=== PATIENT | female | born 1985 | race Caucasian/White ===

== ENCOUNTER 2021-09-24 13:17 | Emergency (ER) | payer OTHER ==
[~2021-09-24] VITALS: Ht 170.2 cm; Wt 136.1 kg
[~2021-09-24 13:17] MED LIST: GLYB2.5; IBUP800 PO; MULVITMINE PO; OXYACE5T PO
[2021-09-24] MEDS ORDERED: LIDO700A20 TOP (17:00)
[2021-09-24] MEDS ORDERED: IBUP800 PO (17:00)
[2021-09-24] MEDS ORDERED: CYCL10 PO (17:00)
[2021-09-24] MEDS ORDERED: PRED20 PO (17:00)
== END 2021-09-24 18:15 | disposition home or self-care (01) ==
LOC: ER 13:17
DX: M51.16 Intervertebral disc disorders with radiculopathy, lumbar region (principal); G89.29 Other chronic pain
CPT/HCPCS: 96374; 96375; 99283-25; A9270; J1100; J1885; J2270

== ENCOUNTER 2022-11-18 13:40 | Day surgery (SDC) | payer OTHER ==
[~2022-11-18] VITALS: Ht 170.2 cm; Wt 148.7 kg
[~2022-11-18 13:40] MED LIST changes: +CYCL10 PO; +LIDO700A20 TOP; +PRED20 PO
[2022-11-18] MEDS ORDERED: Amaryl1 MG (14:32)
[2022-11-18] MEDS ORDERED: FLUOXETINE HCL20 M1 PO (14:34)
[2022-11-18 14:35] LABS: Source, Urine Voided
[2022-11-18] MEDS ORDERED: NAPR220 (14:35)
[2022-11-18 15:07] LABS: Bilirubin, Urine Neg (Neg); Blood, Urine 1+ (Neg); Glucose Qualitative, Urine Neg (Neg); Ketones, Urine 1+ (Neg); Leukocyte Esterase, Urine 3+ (Neg); Nitrite, Urine Neg (Neg); Protein, Urine 2+ (Neg); Specific Gravity, Urine 1.025 (1.003-1.022); Urobilinogen, Urine 1+ (Normal)
--- NOTE | 2022-11-18 15:59 | NUR ---
11/18/22 1559 Iker Avendano ROPIVACAINE 0.5% 30 MLS MIXED W/ EPI 0.15 MG (1MG/ML) PER ORDER TO MAKE ROPIVACAINE 0.5 !:200,000 FOR INJECTION AT OPSITE BY DR SUAZO. 30 MLS INJECTED,
[2022-11-18 16:22] LABS: Appearance, Urine Hazy (Clear); Color, Urine Amber (P-Yellow)
[2022-11-18 16:23] LABS: Bacteria Many /hpf; Squamous Epithelial Cells Many /hpf (Few); White Blood Cells, Urine 25-50 /hpf (0-5)
[2022-11-18 16:24] LABS: Granular Casts 0-2 /lpf (0)
--- NOTE | 2022-11-18 17:29 | NUR ---
11/18/22 1729 CAS R[place] PAIN 01/17.
== END 2022-11-18 17:27 | disposition home or self-care (01) ==
LOC: ORSCSDS 13:40
PROVIDERS: Podiatrist Foot & Ankle Surgery
PROC: 0QSK04Z Reposition Left Fibula with Internal Fixation Device, Open Approach (ICD-10-PCS; principal; 2022-11-18 15:15)
DX: S82.62XA Displaced fracture of lateral malleolus of left fibula, initial encounter for closed fracture (principal); M25.572 Pain in left ankle and joints of left foot; E11.9 Type 2 diabetes mellitus without complications; F41.8 Other specified anxiety disorders; Z79.899 Other long term (current) drug therapy; E66.01 Morbid (severe) obesity due to excess calories; Z68.43 Body mass index [BMI] 50.0-59.9, adult
CPT/HCPCS: 81001; 82947; 87086; A9270; C1713; J0171; J0690; J1100; J1885; J2310; J2405; J2704; J2795; J3010; J7120

== ENCOUNTER → 2023-08-17 | Outpatient (CLI) | payer OTHER ==
[~2023-08-17] MED LIST changes: +Amaryl1 MG; +FLUOXETINE HCL20 M1 PO; +NAPR220
[2023-08-17 09:46] LABS: Bun/Creatinine Ratio 27.6 (12.0-20.0); Calcium, Blood 9.1 mg/dL (8.5-10.1); Creatinine, Blood 0.65 mg/dL (0.40-1.00); Potassium, Blood 3.7 mmol/L (3.5-5.5)
== END ==
LOC: LAB SHORT 08:39 → LAB 08:39
PROVIDERS: Physician Assistant
DX: E11.9 Type 2 diabetes mellitus without complications (principal)
CPT/HCPCS: 80048; 83036